=== PATIENT | female | born 1945 | race Caucasian/White ===

== ENCOUNTER 2016-12-19 15:00 | Inpatient (IN) | payer MEDICARE, OTHER ==
[~2016-12-19] VITALS: Ht 157.5 cm; Wt 65.0 kg
[~2016-12-19 15:00] MED LIST: ALBU6.7H INH; ALPR.25 PO; AMBI6.25 PO; CELE200C PO; ESTR.625 PO; GABA600T PO; HYDR-3366 PO; METH750T PO; MORP1CAP PO; NEUR400C PO; SYNT25TA PO; UMEC1AER INH; ZOFR8TAB PO
[2016-12-20] MEDS ORDERED: NEXI40CA PO (17:09)
[2016-12-20] MEDS ORDERED: MSIR15 PO (17:09)
[2016-12-20] MEDS ORDERED: ASPI325T PO (17:09)
[2016-12-20] MEDS ORDERED: FOLI5CAP PO (17:11)
[2016-12-20] MEDS ORDERED: VITA500T4 PO (17:11)
[2016-12-20] MEDS ORDERED: OSCA200T PO (17:11)
[2016-12-26] MEDS ORDERED: LACTATED RINGER'S 1000 ML INJ 1,000 ML IV SCH (07:15)
[2016-12-26] MEDS ORDERED: ceFAZolin 1,000 MG/NS 100 ML IV SCH ×2 (07:15)
[2016-12-26 07:24] VITALS: BP 151/86; PULSE 49; RESP 16; TEMP 98.6; O2SAT 97
[2016-12-26] MEDS ORDERED: GENTAMICIN SULFATE 80 MG/2 ML VIAL ONE (08:25)
[2016-12-26] MEDS ORDERED: LIDOCAINE 1%/EPINEPHrine 1:100,000 SOLN 20 ML VIAL ONE (08:25)
[2016-12-26] MEDS ORDERED: GELFOAM SIZE 100 ONE (08:25)
[2016-12-26] MEDS ORDERED: THROMBIN (TOPICAL) 5,000 UNIT VIAL ONE (08:25)
[2016-12-26] MEDS ORDERED: PROPOFOL 200 MG/20 ML AMP IV ONE (12:00)
[2016-12-26] MEDS ORDERED: ePHEDrine/NS 25 MG/5 ML SYR IV ONE (12:00)
[2016-12-26] MEDS ORDERED: PHENYLEPH/NS 1000 MCG/10 ML SYR IV ONE (12:00)
[2016-12-26] MEDS ORDERED: NORMOSOL R INJ 1,000 ML IV ONE (12:00)
[2016-12-26] MEDS ORDERED: NEOSTIGMINE 3 MG/3 ML SYR IV ONE (12:00)
[2016-12-26] MEDS ORDERED: ceFAZolin INJ 1,000 MG VIAL IV ONE ×2 (12:05→16:00)
[2016-12-26] MEDS ORDERED: MIDAZOLAM HCL 2 MG/2 ML VIAL ONE (15:05)
[2016-12-26] MEDS ORDERED: MORPHINE SULFATE 4 MG/ML INJ ONE (15:06)
[2016-12-26] MEDS ORDERED: DO NOT ADM ANY ANTICOAGULANT DRUGS PRN (17:00)
[2016-12-26] MEDS ORDERED: *morphine SULFATE 8 MG/ML PERIprocedure ONLY ONE ×2 (17:17→17:48)
[2016-12-26] MEDS ORDERED: D5-1/2 NS + KCL 20 MEQ INJ 1,000 ML IV SCH (17:22)
--- NOTE | 2016-12-26 17:23 | RADRPT ---
EXAM DATE/TIME: 12/26/2016 09:50 [facility] COMPARISON: FLUOROSCOPY PORTABLE UP TO 1HR, December 26, 2016, 0:00. INDICATIONS : Cervical spine C2-3 C4-5 semilaminectomy. C7-T1 bilateral hemilaminectomy. C7-T1 pedicle screw fixati on. OR. MEDICAL HISTORY : None. SURGICAL HISTORY : Fusion, cervical. ENCOUNTER: Initial ACUITY: 1 day PAIN SCORE: Non-responsive. LOCATION: Cervical spine C7-T1 FINDINGS: Multiple digital images are submitted. These reveal ventral hardware fusion at C3-4 and at C5-C7 with intervening corpectomy and bone graft. There is also posterior fusion hardware present appearing to be at C7-T1. The hardware appears intact. Alignment is satisfactory. CONCLUSION: Satisfactory appearance post cervical hardware fusion Siddhartha Lima MD on December 26, 2016 at 17:17 Board Certified Radiologist. This report was verified electronically.
[2016-12-26] MEDS ORDERED: NALOXONE HCL 0.4 MG/ML AMP IV PRN (17:30)
[2016-12-26] MEDS ORDERED: ALBUTEROL SULFATE 90 MCG/ACT HFA 18 GM INHALER INH PRN (17:30)
[2016-12-26] MEDS ORDERED: ACETAMINOPHEN/HYDROcodone 325 MG/5 MG TAB PO PRN (17:30)
[2016-12-26] MEDS ORDERED: SODIUM CHLORIDE 0.9% FLUSH 5 ML FLUSH IVF PRN (17:30)
[2016-12-26] MEDS ORDERED: HYDROmorphone HCL PF 1 MG/ML VIAL IV PRN (17:30)
[2016-12-26] MEDS: METHOCARBAMOL 500 MG TAB PO SCH (18:00)
[2016-12-26] MEDS: ONDANSETRON ODT 4 MG TAB PO SCH (18:00)
--- NOTE | 2016-12-26 18:33 | PD.OP ---
Operative Report Date of Surgery: Dec 26, 2016 Preoperative Diagnosis: (1) Cervical disc disease with myelopathy (2) Cervical disc disorder with radiculopathy (3) DDD (degenerative disc disease), cervical 1. C2 3, C4 5, C7-T1 canal stenosis with spinal cord compression 2. C7-T1 anterolisthesis 3. Bilateral C8 radiculopathy 4. Cervical myelopathy Postoperative Diagnosis: (1) Cervical disc disease with myelopathy (2) Cervical disc disorder with radiculopathy (3) DDD (degenerative disc disease), cervical 1. C2 3, C4 5, C7-T1 canal stenosis with spinal cord compression 2. C7-T1 anterolisthesis 3. Bilateral C8 radiculopathy 4. Cervical myelopathy Procedure: 1. C2 3 and C4 5 bilateral decompressive [id number] 2. C7-T1 bilateral decompressive semi-laminectomy, bilateral foraminotomy- microtechnique 3. C7-T1 posterior intraspinous process fusion with composite allograft bone 4. C7-T1 posterior fusion with pedicle screw and spinous process-laminar screw fixation 5. Preparation and contouring of composite allograft bone for posterior cervical spinal fusion. Anesthesia: Gen. endotracheal Surgeon: Guerrero Aguilar Director Of Instrumental Music(s): Nadya Huston Operation and Findings: Procedure in detail: The patient was brought into the operating room and general endotracheal anesthesia induced without difficulty. Lines were established by anesthesia Knee high sequential compression devices were placed Appropriate timeout procedure was performed with all personnel present and in agreement The Nelson 3 point fixation device was placed. The patient was in a cervical collar for positioning Leads for intraoperative neuro monitoring were placed prior to positioning and a baseline study obtained The patient was turned into prone position on the 3080 table on the Marco frame with the undersigned maintaining control of the head and neck. The head and neck were secured to the operating room table with the Nelson adapter with the neck in neutral position. The neck position was checked with intraoperative C-arm and felt to be satisfactory. The cervical collar was removed. All extremities were appropriately padded. The back of the head and neck were shaved with clippers and sterilely prepped and draped. 1% Xylocaine with epinephrine was used for local infiltration over the incision site was made in the midline posterior neck and carried sharply down to the spinous processes of C2-T1 The solomon elevator used for subperiosteal elevation of paraspinous musculature and fascia away from the bilateral lamina and facet at the C2-T1 level. Significant facet hypertrophy and osteophyte formation was noted. Osteophyte overlying the facet on each side was removed with Leksell rongeur at the C7-T1 level There was noted to be severe disruption of the interspinous ligament at the C7- T1 level. There was also noted to be significant separation of the bilateral C7-T1 facet, with significant facet instability, and subluxation of the facet associated with the anterior listhesis. Based on these findings, it was elected to proceed with the posterior instrumentation to stabilize the C7-T1 segment prior to decompression. The patient had a very small right C7 pedicle and lateral mass. It was thus elected to perform pedicle screws only of the left C7-T1 level. The left C7 and T1 pedicle screws were placed using anatomic and radiologic landmarks with AP and lateral C-arm imaging. The opening for the screw was started with the small matchstick bur followed by the hand drill and the tap. The holes for the screws were carefully probed with the onmas-bajz-mcb probe to ensure no breakout. The [employer] [place] pedicle screws were then secured at the left C7 and T1 pedicles with a 3.5 x 14 mm screw at C7 and a 3.5 x 16 mm screw at T1. The pascual was secured with the locking caps and temporarily tightened. In order to further reinforce the construct since right pedicle screws were not placed, it was elected to place a left to right T1 laminar screw and a left to right screw at the base of the C7 spinous process since the C7 lamina was very thin. The screws were again placed using anatomic landmarks and the hand drill and tap followed by probing with the mnmps-[id number]-ulo probe and placing a 35 x 14 mm screw at the base of the C7 spinous process and a 35 x 16 mm screw at the T1 lamina. Both of these screws appeared to have solid fixation. The pascual was then placed and secured with the locking caps and temporarily tightened The microscope was brought into place and used for the decompression portion of the procedure. At the bilateral C2 3, C3 4, and C7-T1 posterior interlaminar space, the inferior aspect of the more cephalad lamina and superior aspect of the more caudal lamina were removed with the TPS drill and the Kerrison rongeur to further decompress the spinal cord at these levels. Significantly hypertrophied ligamentum flavum was then lifted away from the thecal sac and further removed with a Kerrison rongeur. The dorsal lateral thecal sac appeared well decompressed at the end of the laminectomy portion of the procedure with good pulsations of the CSF space. At the bilateral C7-T1 level, the neural foramen was palpated with the blunt micro-nerve hook, and there appeared to be significant facet hypertrophy impinging on the exiting nerve root. The foraminotomy was performed at this level using the small ayana bur to remove the overlying facet down to a thin shell of cortical bone overlying the nerve root. The thin ligament dissector and 1 and 2 mm thin foot plate Kerrison rongeurs were then used to elevate and remove the remaining bone away from the dorsal aspect of the nerve root to perform the foraminotomy. The exiting right and left C8 nerve appeared well decompressed at the end of this portion of the procedure. Due to the lack of any other adequate surface for bone graft placement, it was elected to place a C7-T1 interspinous process bone graft. The inferior C7 and superior T1 spinous process and dorsal lamina were decorticated with the Leksell rongeur and TPS drill with a 5 mm bone burred down to cancellus bone taking care not to compromise the integrity of the lamina or spinous process. A piece of properly prepared VG2 composite allograft bone was contoured with the TPS drill with a 5 mm bone bur and placed with a snug fit of the graft at the decorticated C7-T1 interspinous process-interlaminar space. The C7 laminar screw cap was loosened and the C7-T1 spinous processes gently compressed against the bone graft followed by final tightening of the T1 spinous process. Angle screw With the torque wrench and anti-torque device. The remaining locking caps were then all final tightened using the torque screwdriver and the anti-torque device. The region was well irrigated with antibiotic irrigation. The region was well irrigated with antibiotic irrigation. Bleeding was carefully controlled with bipolar forceps A 7 mm flat fluted drain was left at the operative site and brought out through an incision in the upper thoracic region and secured to the skin with nylon suture The closure was performed with 0 Vicryl interrupted for the deep and superficial fascia with 3-0 Vicryl interrupted subcutaneous closure and 4-0 Vicryl subcutaneous closure. A dressing of sterile Steri-Strips and a 4 x 4 and paper tape dressing was applied. The patient was placed back in a cervical collar and released from the [place] adapter and turned back into supine position on the recovery room bed. The [place] 3 point fixation device was then removed. The patient was taken to recovery room in stable condition All counts were correct at the end of the case. Estimated blood loss was 100 cc No specimen was sent to pathology Neural monitoring remained stable during the procedure Guerrero Aguilar MD Dec 26, 2016 18:33
[2016-12-26] MEDS: GABAPENTIN 300 MG CAP PO SCH (20:18)
[2016-12-26] MEDS: PANTOPRAZOLE SOD 40 MG DELAYED RELEASE TAB PO SCH (20:18)
[2016-12-26] MEDS: oxyCODONE/ACETAMINOPHEN 10 MG/325 MG TAB PO PRN (20:19)
[2016-12-26 20:20] VITALS: BP 167/86; PULSE 76; RESP 17; TEMP 97.4; O2SAT 96
[2016-12-26] MEDS: SODIUM CHLORIDE 0.9% FLUSH 5 ML FLUSH IVF SCH (20:20)
[2016-12-26] MEDS: MORPHINE SULFATE 15 MG TAB PO PRN (20:31)
[2016-12-26] MEDS: ZOLPIDEM TARTRATE 10 MG TAB PO PRN (20:31)
[2016-12-26] MEDS: ALPRAZolam 0.5 MG TAB PO PRN (20:31)
[2016-12-27] VITALS (9 sets, daily range): BP systolic 127–189; BP diastolic 70–96; PULSE 70–82; RESP 16–20; TEMP 96.7–98; O2SAT 94–99
[2016-12-27] MEDS: oxyCODONE/ACETAMINOPHEN 10 MG/325 MG TAB PO PRN ×4 (02:21→18:31)
[2016-12-27] MEDS: LEVOTHYROXINE SODIUM 25 MCG TAB PO SCH (04:27)
[2016-12-27] MEDS: MORPHINE SULFATE 4 MG/ML INJ IV PRN (04:27)
[2016-12-27] MEDS ORDERED: cloNIDine HCL 0.2 MG TAB PO ONE (08:30)
[2016-12-27 08:38] LABS: AUTOMATED NEUTROPHIL # 7.1 TH/MM3 (1.8-7.7); BASOPHIL % 0.3 % (0.0-2.0); EOSINOPHIL % 0.4 % (0.0-4.0); HEMATOCRIT 25.6 % (35.0-46.0); HEMO FLAGS DIFF FINAL; LYMPH % 6.9 % (9.0-44.0); LYMPHOCYTE # 0.6 TH/MM3 (1.0-4.8); MEAN CELL VOLUME 91.9 FL (80.0-100.0); MEAN CORPUSCULAR HEMOGLOBIN 30.4 PG (27.0-34.0); MEAN CORPUSCULAR HGB CONC 33.1 % (32.0-36.0); MONO % 9.6 % (0.0-8.0); NEUT % 82.8 % (16.0-70.0); PLATELET COUNT 271 TH/MM3 (150-450); RED BLOOD COUNT 2.78 MIL/MM3 (4.00-5.30); RED CELL DISTRIBUTION WIDTH 13.4 % (11.6-17.2); WHITE BLOOD COUNT 8.6 TH/MM3 (4.0-11.0)
[2016-12-27] MEDS ORDERED: MORPHINE 30 MG PO SCH (09:00)
[2016-12-27] MEDS ORDERED: UMECLIDINIUM 62.5 MCG/VILANTEROL 25 MCG INHALER INH SCH (09:00)
[2016-12-27] MEDS: SODIUM CHLORIDE 0.9% FLUSH 5 ML FLUSH IVF SCH ×2 (09:00→21:00)
[2016-12-27 09:04] LABS: BICARBONATE 25.8 MEQ/L (21.0-32.0); POTASSIUM 4.1 MEQ/L (3.5-5.1)
[2016-12-27] MEDS: ESTROGENS CONJUGATED 0.625 MG TAB PO SCH (09:15)
[2016-12-27] MEDS: GABAPENTIN 400 MG CAP PO SCH (09:16)
[2016-12-27] MEDS: PANTOPRAZOLE SOD 40 MG DELAYED RELEASE TAB PO SCH ×2 (09:16→21:34)
[2016-12-27] MEDS: METHOCARBAMOL 500 MG TAB PO SCH ×3 (09:17→18:31)
[2016-12-27] MEDS: ONDANSETRON ODT 4 MG TAB PO SCH ×3 (09:20→18:30)
[2016-12-27] MEDS: MORPHINE SULFATE 15 MG TAB PO PRN (09:26)
--- NOTE | 2016-12-27 18:24 | HHI.NSPN ---
Exam Results Vital Signs Date Time Temp Pulse Resp B/P Pulse Ox O2 Delivery O2 Flow Rate FiO2 12/27/16 16:58 95 21 12/27/16 16:40 96.8 73 20 143/81 12/26/16 18:15 Nasal Cannula 3 Intake and Output 12/26/16 12/26/16 12/27/16 08:00 16:00 00:00 Intake Total 3140 ml Output Total 1080 ml Balance 2060 ml Physical Examination Neck incision has mild dried drainage on the Steri-Strips, otherwise intact. Respirations clear to auscultation Cardiac regular without murmur Moderate drain output, mostly dense blood Cervical collar is in place Sensation relatively intact light touch all extremities. Upper extremity paresthesias improve postoperative Strength is 4+/5 right and 5/5 left triceps and biceps with forced plus/5 bilateral hand intrinsics Minimal bilateral Elijah's response No ankle clonus Medical Decision Making Impression and Plan Impression: 1. Doing reasonably well following multilevel cervical decompressive laminectomies, C7-T1 fusion. Remains with moderate drain output. Persistent moderately severe pain. Plan: Findings were discussed with the patient. Due to persistent moderate drain output the drain will be left in place until 12/28/2016 AM. She was quite unsteady in therapy today and is to ambulate only with assistance. We will need to arrange for home health nursing and physical therapy evaluation with plans to discontinue the drain and discharge home in the morning Guerrero Aguilar MD Dec 27, 2016 18:23
[2016-12-27] MEDS: GABAPENTIN 300 MG CAP PO SCH (21:33)
[2016-12-27] MEDS: ZOLPIDEM TARTRATE 10 MG TAB PO PRN (21:38)
[2016-12-27] MEDS: ALPRAZolam 0.5 MG TAB PO PRN (21:38)
[2016-12-28 00:40] VITALS: BP 188/93; PULSE 87; RESP 18; TEMP 96.5; O2SAT 92
[2016-12-28] MEDS: MORPHINE SULFATE 4 MG/ML INJ IV PRN ×3 (01:43→17:48)
[2016-12-28 04:10] VITALS: BP 194/84; PULSE 88; RESP 18; TEMP 98.4; O2SAT 94
[2016-12-28] MEDS: oxyCODONE/ACETAMINOPHEN 10 MG/325 MG TAB PO PRN ×2 (04:13→14:33)
[2016-12-28] MEDS: LEVOTHYROXINE SODIUM 25 MCG TAB PO SCH (04:13)
[2016-12-28] MEDS ORDERED: cloNIDine HCL 0.1 MG TAB PO PRN (04:15)
[2016-12-28] MEDS ORDERED: ENALAPRILAT 1.25 MG/ML VIAL IV PUSH PRN (04:15)
[2016-12-28 05:19] VITALS: BP 138/67
[2016-12-28 08:00] VITALS: BP 145/70; PULSE 92; RESP 16; TEMP 99.2; O2SAT 94
[2016-12-28] MEDS: PANTOPRAZOLE SOD 40 MG DELAYED RELEASE TAB PO SCH (09:19)
[2016-12-28] MEDS: GABAPENTIN 400 MG CAP PO SCH (09:19)
[2016-12-28] MEDS: METHOCARBAMOL 500 MG TAB PO SCH ×3 (09:19→17:39)
[2016-12-28] MEDS: ONDANSETRON ODT 4 MG TAB PO SCH ×3 (09:19→17:39)
[2016-12-28] MEDS: ESTROGENS CONJUGATED 0.625 MG TAB PO SCH (09:20)
[2016-12-28] MEDS: SODIUM CHLORIDE 0.9% FLUSH 5 ML FLUSH IVF SCH (09:37)
[2016-12-28] MEDS: MORPHINE SULFATE 15 MG TAB PO PRN (11:09)
[2016-12-28 12:00] VITALS: BP_SYST 124; BP_DIAS 72; BP_DIAS 74; PULSE 92; RESP 16; TEMP 98.7; O2SAT 98
[2016-12-28] MEDS: ALPRAZolam 0.5 MG TAB PO PRN (14:30)
[2016-12-28 15:57] VITALS: BP 131/65; PULSE 88; RESP 20; TEMP 99.6; O2SAT 96
--- NOTE | 2016-12-28 17:08 | HHI.DCPOC ---
Discharge Care Plan Diagnosis: (1) DDD (degenerative disc disease), cervical (2) Cervical disc disorder with radiculopathy (3) Cervical disc disease with myelopathy Your Health Problems Are: Difficulty with ADL Incision/Drains Exercise Tolerance Chronic Pain Goals to Promote Your Health * To prevent worsening of your condition and complications * To maintain your health at the optimal level Directions to Meet Your Goals Take your medications as prescribed Follow your dietary instruction Follow activity as directed Keep your appointments as scheduled Take your immunizations and boosters as scheduled If your symptoms worsen call your PCP, if no PCP go to Urgent Care Center or Emergency Room Smoking is Dangerous to Your Health. Avoid second hand smoke Call the 24-hour hour crisis hotline for domestic abuse at Guerrero Aguilar MD Dec 28, 2016 17:08
--- NOTE | 2016-12-28 17:11 | HHI.FF ---
Face to Face Verification Diagnosis: (1) Cervical disc disease with myelopathy (2) Cervical disc disorder with radiculopathy (3) DDD (degenerative disc disease), cervical Physical Therapy Order: Evaluate and Treat, Improve ambulation, Strength and gait training Home Health Nursing Order: Signs/symptoms of disease process Wound care and dressing changes Nursing assessment with vital signs I have seen patient Bibi Burton on 12/28/16. My clinical findings support the need for the requested home health care services because: Ltd mobility - disease progression Deconditioned w/ increased weakness Limited ability to care for self High risk of falls I certify that my clinical findings support that this patient is homebound because: Post-op weakness Unsteady gait/balance Unsafe to leave home unassisted Unable to use public transportation Guerrero Aguilar MD Dec 28, 2016 17:11
--- NOTE | 2016-12-28 17:41 | HHI.DS ---
Discharge Summary Admission Date Dec 26, 2016 at 06:24 Discharge Date: Dec 28, 2016 Admitting Diagnosis Cervical myelopathy Cervical radiculopathy Hypertension (1) Cervical disc disease with myelopathy ICD Code: M50.00 (2) Cervical disc disorder with radiculopathy ICD Code: M50.10 (3) DDD (degenerative disc disease), cervical ICD Code: M50.30 Procedures 12/26/16: C3 4, C4 5, C7-T1 decompressive semi-laminectomy, C7-T1 bilateral foraminotomy, posterior fusion with instrumentation, allograft bone CBC/BMP: 12/27/16 0818 12/27/16 0818 Significant Findings Laboratory Tests Test 12/27/16 08:18 Red Blood Count 2.78 MIL/MM3 (4.00-5.30) Hemoglobin 8.5 GM/DL (11.6-15.3) Hematocrit 25.6 % (35.0-46.0) Neutrophils (%) (Auto) 82.8 % (16.0-70.0) Lymphocytes (%) (Auto) 6.9 % (9.0-44.0) Monocytes (%) (Auto) 9.6 % (0.0-8.0) Lymphocytes # (Auto) 0.6 TH/MM3 (1.0-4.8) Creatinine 1.16 MG/DL (0.50-1.00) Estimat Glomerular Filtration 46 ML/MIN (>89) Rate Hospital Course Admitted for above noted procedure performed without complication. Postoperative day #1 persistent moderate drain output. Patient ambulated with physical therapy. Recommendations made for patient to be out of bed with assistance only. Continued moderate pain requiring increased pain medications. Questionable discharge home versus inpatient rehabilitation depending on clinical course. Postoperative day #2 pain slowly improving, ambulating better with physical therapy with recommendations for discharged home with home health care. Drain and Neumann catheter removed. Pt Condition on Discharge: Good Discharge Disposition: Disch w/ Home Health Serv Discharge Instructions DIET: Follow Instructions for: Soft Diet ACTIVITIES You can perform: Weight Bearing As [place] Activities to Avoid: Lifting/Bending, Strenuous Activity ADDITIONAL Activity Instructio: Ambulate with walker or cane as needed. Follow up Referrals: Appointment for Follow Up New Orders: Home Health Care - Next Day Physical Therapy - Next Day Continued Medications: Albuterol 6.7 GM Inh (Proventil Hfa 6.7 GM Inh) 90 Mcg/Act Aer 1 PUFF INH Q4H PRN SHORTNESS OF BREATH #1 Ref 0 INHALER Alprazolam (Xanax) 0.25 Mg Tab 0.5 MG PO TID PRN ANXIETY Ref 0 TAB Calcium Carbonate-Vitamin D (Oscal 500/200 D-3) 500-200 Mg-Unit Tab Unknown Dose PO DAILY Calcium Supplement Ref 0 TAB Cyanocobalamin (Vitamin B-12) 500 Mcg Tab Unknown Dose PO DAILY Nutritional Supplement #1 Ref [address] (Nexium) 40 Mg Capdr 40 MG PO BID Ref 0 CAP Estrogens, Conjugated (Premarin) 0.625 Mg Tab 0.625 MG PO DAILY Estrogen Supplements #30 Ref 0 TAB Folic Acid (Folic Acid) 5 Mg Cap Unknown Dose PO DAILY Nutritional Supplement Ref 0 CAP Gabapentin (Gabapentin) 600 Mg Tab 1200 MG PO HS #30 Ref 0 TAB Gabapentin (Neurontin) 400 Mg Cap 400 MG PO DAILY #30 Ref 0 CAP Hydrocodone-Acetaminophen ([place]) 10-325 Mg Tab 1 TAB PO Q12HR PRN PAIN Ref 0 TAB Levothyroxine (Synthroid) 25 Mcg Tab 25 MCG PO DAILY Thyroid #30 Ref 0 TAB Methocarbamol (Methocarbamol) 750 Mg Tab 750 MG PO TID Muscle Spasm #120 Ref 0 TAB Morphine ER 24 HR (Aiyana) 30 Mg Caper 30 MG PO DAILY Pain Management Ref 0 CAP Morphine IR (Morphine IR) 15 Mg Tab 15 MG PO BID PRN PAIN Ref 0 TAB Ondansetron (Zofran) 8 Mg Tab 8 MG PO TID Nausea/Vomiting Ref 0 TAB Umeclidinium-Vilanterol Inh (Anoro Ellipta Inh) 62.5-25 Mcg/Act Aero 1 PUFF INH DAILY COPD #1 Ref 0 INHALER Zolpidem ER (Ambien CR) 6.25 Mg Tab 12.5 MG PO HS PRN INSOMNIA Ref 0 TAB Discontinued Medications: Aspirin (Aspirin) 325 Mg Tab 325 MG PO DAILY #30 Ref 0 TAB Celecoxib (Celebrex) 200 Mg Cap 200 MG PO BID Pain Management Ref 0 CAP Guerrero Aguilar MD Dec 28, 2016 17:41
--- NOTE | 2016-12-28 18:20 | HHI.NSPN ---
History Chief Complaint: neck pain Interval History Status post decompressive semi-laminectomy with C7-T1 posterior fusion with instrumentation on 12/28/16 Exam Results Vital Signs Date Time Temp Pulse Resp B/P Pulse Ox O2 Delivery O2 Flow Rate FiO2 12/28/16 15:57 99.6 88 20 131/65 96 12/28/16 11:58 Room Air 12/27/16 16:58 21 12/26/16 18:15 3 Intake and Output 12/27/16 12/27/16 12/28/16 08:00 16:00 00:00 Intake Total 60 ml 480 ml 240 ml Output Total 45 ml 1850 ml 1420 ml Balance 15 ml -1370 ml -1180 ml Physical Examination Neck incision has mild dried drainage on the Steri-Strips, otherwise intact. Respirations clear to auscultation Cardiac regular without murmur Minimal drain output, mostly dense blood Cervical collar is in place Sensation relatively intact light touch all extremities. Upper extremity paresthesias improve postoperative Strength is 4+/5 right and 5/5 left triceps and biceps with forced plus/5 bilateral hand intrinsics Minimal bilateral Elijah's response No ankle clonus Medical Decision Making Impression and Plan Impression: 1. Doing reasonably well following multilevel cervical decompressive laminectomies, C7-T1 fusion. Plan: Findings were discussed with the patient. Discussed with nursing staff and physical therapy this morning and with nursing staff again this afternoon. Patient appears stable for discharge home with home health care which is her desire. Plan home nursing assessment and home physical therapy Patient has sufficient medications at home and no further prescriptions requested. Activity precautions, signs and symptoms to watch for, wound carefully discussed with the patient. Guerrero Aguilar MD Dec 28, 2016 18:20
[2016-12-29] MEDS ORDERED: MISC-163 (15:52)
[2016-12-29] MEDS ORDERED: HOSP BED1 (15:52)
[2016-12-29] MEDS ORDERED: GETGO ROLLING W1 MI1 (15:52)
[2017-01-13] MEDS ORDERED: PLAV75TA29 PO (10:10)
[2017-01-13] MEDS ORDERED: MSIR15 PO (11:42)
== END 2016-12-28 19:09 | disposition home health service (06) | DRG 472 ==
LOC: HSDI 12-26 06:24 → EDSTATUS 12-26 08:30 → N06B 12-26 18:40
PROVIDERS: ADMIT Neurological Surgery; ATTEND Neurological Surgery
PROC: 00NW0ZZ Release Cervical Spinal Cord, Open Approach (ICD-10-PCS; 2016-12-26)
PROC: 0RG40K1 Fusion of Cervicothoracic Vertebral Joint with Nonautologous Tissue Substitute, Posterior Approach, Posterior Column, Open Approach (ICD-10-PCS; principal; 2016-12-26 08:44)
DX: M50.01 Cervical disc disorder with myelopathy, high cervical region (principal); G95.29 Other cord compression; M48.02 Spinal stenosis, cervical region; M48.04 Spinal stenosis, thoracic region; J44.9 Chronic obstructive pulmonary disease, unspecified; I10 Essential (primary) hypertension; M48.03 Spinal stenosis, cervicothoracic region; M43.13 Spondylolisthesis, cervicothoracic region; M50.11 Cervical disc disorder with radiculopathy, high cervical region; M25.78 Osteophyte, vertebrae; M50.10 Cervical disc disorder with radiculopathy, unspecified cervical region; E03.9 Hypothyroidism, unspecified; I73.9 Peripheral vascular disease, unspecified; K21.9 Gastro-esophageal reflux disease without esophagitis; I73.00 Raynaud's syndrome without gangrene; H81.09 Meniere's disease, unspecified ear; F41.9 Anxiety disorder, unspecified; Z88.1 Allergy status to other antibiotic agents; Z85.528 Personal history of other malignant neoplasm of kidney; Z85.828 Personal history of other malignant neoplasm of skin; Z87.891 Personal history of nicotine dependence; Z90.5 Acquired absence of kidney; Z91.041 Radiographic dye allergy status
CPT/HCPCS: 72040; 76000; 76937; 80048; 85025; 86850; 86900; 86901; 94150; C1713; J0690; J1580; J2250; J2270; J2370; J2710; J3010; J3480; L0150; L0172

== ENCOUNTER → 2016-12-20 | Outpatient (CLI) | payer MEDICARE, OTHER ==
[~2016-12-20] MED LIST changes: +ASPI325T PO; +FOLI5CAP PO; +GETGO ROLLING W1 MI1; +HOSP BED1; +MISC-163; +MSIR15 PO; +NEXI40CA PO; +OSCA200T PO; +PLAV75TA29 PO; +VITA500T4 PO; +[UNRECOGNIZED DRUG - CODE]
[2016-12-20 10:39] LABS: MEAN CELL VOLUME 91.4 FL (80.0-100.0); MEAN CORPUSCULAR HEMOGLOBIN 30.5 PG (27.0-34.0); MEAN CORPUSCULAR HGB CONC 33.3 % (32.0-36.0); PLATELET COUNT 358 TH/MM3 (150-450); RED BLOOD COUNT 3.28 MIL/MM3 (4.00-5.30); REVIEW FLAG FINAL; WHITE BLOOD COUNT 5.3 TH/MM3 (4.0-11.0)
[2016-12-20 10:50] LABS: APTT (PATIENT) 25.2 SEC (24.3-30.1); INTERNATIONAL NORMALIZED RATIO 0.9 RATIO; PROTHROMBIN TIME - PATIENT 10.2 SEC (9.8-11.6)
[2016-12-20 11:08] LABS: BICARBONATE 31.7 MEQ/L (21.0-32.0); POTASSIUM 4.3 MEQ/L (3.5-5.1)
--- NOTE | 2016-12-20 11:46 | RADRPT ---
EXAM DATE/TIME: 12/20/2016 11:13 [facility] COMPARISON: No previous studies available for comparison. INDICATIONS : Evaluate for pneumonia, pneumothorax, or communicable disease. Pre op Cervical laminectomy. MEDICAL HISTORY : Smoker. SURGICAL HISTORY : Cervical surgeries. ENCOUNTER: Initial ACUITY: 1 day PAIN SCORE: 0/10 LOCATION: Bilateral chest FINDINGS: PA and lateral views of the chest demonstrate the lungs to be symmetrically aerated without evidence of mass, infiltrate or effusion. Minimal atelectatic changes above the left hemidiaphragm. The cardi omediastinal contours are unremarkable. Osseous structures are intact with anterior fixation of lowe r cervical spine. Levoscoliosis of the lumbar spine with loss of the normal kyphotic curvature of the dorsal spine. CONCLUSION: Minimal atelectatic changes above the left hemidiaphragm. Otherwise, no acute cardiopulmonary pr ocess. Servando Jackson MD on December 20, 2016 at 11:43 Board Certified Radiologist. This report was verified electronically.
--- NOTE | 2016-12-20 22:04 | EKG ---
Date Performed: 12/20/2016 Time Performed: 10:25:36 PTAGE: 71 years EKG: SINUS BRADYCARDIA LOW QRS VOLTAGE IN PRECORDIAL LEADS Since previous tracing, no significan t change noted BORDERLINE ECG PREVIOUS TRACING : 12/06/12 09.32.28 DOCTOR: Izzy Lindsey Interpretating Date/Time 12/20/2016 22:02:48
== END ==
LOC: CPRE 09:59
PROVIDERS: ATTEND Neurological Surgery
DX: Z01.810 Encounter for preprocedural cardiovascular examination (principal); Z01.811 Encounter for preprocedural respiratory examination; Z01.812 Encounter for preprocedural laboratory examination; M50.10 Cervical disc disorder with radiculopathy, unspecified cervical region; M48.02 Spinal stenosis, cervical region; R94.31 Abnormal electrocardiogram [ECG] [EKG]; M50.30 Other cervical disc degeneration, unspecified cervical region; Z79.01 Long term (current) use of anticoagulants
CPT/HCPCS: 36415; 71020; 80048; 85027; 85610; 85730; 93005